=== PATIENT | male | born 1960 | race Two or more races ===

== ENCOUNTER 2019-08-06 14:31 | Day surgery (SDC) | payer OTHER ==
[~2019-08-06] VITALS: Ht 185.4 cm; Wt 114.0 kg
[~2019-08-06 14:31] MED LIST: BUPIVACAINE/PF 0.5% ONE
[2019-08-06] MEDS ORDERED: LACTATED RINGERS 1,000 ML IV ONE (14:50)
[2019-08-06 14:56] VITALS: BP 152/80
[2019-08-06] MEDS ORDERED: PLEASE ENTER HEIGHT AND WEIGHT MC SCH (15:00)
[2019-08-06] MEDS ORDERED: LEVOTHYROXINE (15:07)
[2019-08-06] MEDS ORDERED: LISINOPRIL (15:07)
[2019-08-06] MEDS ORDERED: METF500T17 PO (15:07)
[2019-08-06] MEDS ORDERED: OZEMPIC (15:07)
[2019-08-06] MEDS ORDERED: JARDIANCE (15:07)
[2019-08-06] MEDS ORDERED: FENTANYL PF 100 MCG/2ML ONE (15:09)
[2019-08-06] MEDS ORDERED: MIDAZOLAM 1 MG/ML, 2ML ONE (15:09)
[2019-08-06] MEDS ORDERED: LIDOCAINE PF 2%, 5ML ONE (15:15)
[2019-08-06] MEDS ORDERED: KETOROLAC 30 MG/1 ML ONE (15:15)
[2019-08-06] MEDS ORDERED: PROMETHAZINE 25 MG SUPP PR PRN (15:30)
[2019-08-06] MEDS ORDERED: LABETALOL 5MG/ML, 20ML IV PRN (15:30)
[2019-08-06] MEDS ORDERED: ACETAMINOPHEN 325 MG TABLET PO PRN (15:30)
[2019-08-06] MEDS ORDERED: HYDROmorphone 2 MG/ML, 1ML IVPush PRN (15:30)
[2019-08-06] MEDS ORDERED: hydrALAzine 20 MG/ML, 1ML IV PRN (15:30)
[2019-08-06] MEDS ORDERED: ONDANSETRON ODT 8 MG PO PRN (15:30)
[2019-08-06] MEDS ORDERED: PROMETHAZINE 25 MG/ML, 1ML IV PRN (15:30)
[2019-08-06] MEDS ORDERED: ONDANSETRON 2MG/ML, 2ML IV PRN (15:30)
[2019-08-06] MEDS ORDERED: OXYcodone 5 MG/5 ML ORAL.SOL UDC PO PRN (15:30)
[2019-08-06] MEDS ORDERED: FENTANYL PF 100 MCG/2ML IV PRN (15:30)
[2019-08-06] MEDS ORDERED: CEFAZOLIN 1,000 MG ONE (15:42)
[2019-08-06] MEDS ORDERED: ONDANSETRON 2MG/ML, 2ML ONE (15:42)
[2019-08-06] MEDS ORDERED: DEXAMETHASONE 4 MG/ML, 1ML ONE (15:42)
[2019-08-06] MEDS ORDERED: PROPOFOL 10 MG/ML, 20ML ONE (15:42)
== END 2019-08-06 17:20 | disposition home or self-care (01) ==
LOC: OR 14:31
PROVIDERS: ATTEND Orthopaedic Surgery
DX: G56.02 Carpal tunnel syndrome, left upper limb (principal); I10 Essential (primary) hypertension; E11.9 Type 2 diabetes mellitus without complications; Z88.0 Allergy status to penicillin; Z98.890 Other specified postprocedural states
CPT/HCPCS: 64721; 82962; J0690; J1100; J1885; J2250; J2405; J2704; J3010